=== PATIENT | female | born 1940 | race African-American/Black ===

== ENCOUNTER 2023-11-10 12:55 | Emergency (ER) | payer BC, MEDICARE, OTHER ==
[~2023-11-10] VITALS: Ht 170.2 cm; Wt 74.0 kg
[~2023-11-10 12:55] MED LIST: CLOP75TA33 PO; LISI20TA31 PO
[2023-11-10 13:00] VITALS: TEMP 98.4; O2SAT 98
[2023-11-10] MEDS ORDERED: SODIUM CHLORIDE 0.9% 1,000 ML IV ONE (13:15)
[2023-11-10] MEDS ORDERED: FAMOTIDINE 20MG/2ML VIAL IV STA (13:15)
[2023-11-10] MEDS ORDERED: ONDANSETRON HCL 4MG/2ML INJ IV STA (13:15)
[2023-11-10] MEDS ORDERED: LOPERAMIDE HCL 2MG CAPSULE PO ONE (14:45)
[2023-11-10] MEDS ORDERED: MORPHINE SULFATE 2 MG/ML CPJ (NOT FOR IM USE) IV ONE (14:45)
[2023-11-10 14:58] LABS: INR 1.1; PROTHROMBIN TIME 11.3 sec (9.6-11.0)
[2023-11-10 14:59] LABS: BASOPHILS % 0.9 % (0.0-2.0); EOSINOPHILS % 0.1 % (0.0-5.0); HEMATOCRIT. 41.9 % (36.0-48.0); HEMOGLOBIN. 13.4 g/dL (12.0-16.0); LYMPHOCYTES % 18.2 % (20.0-50.0); MEAN CORPUSCULAR HEMOGLOBIN 27.9 pg (28.0-32.0); MEAN CORPUSCULAR HGB CONC 31.9 g/dL (31.0-37.0); MEAN CORPUSCULAR VOLUME 87.5 fL (81.0-99.0); MEAN PLATELET VOLUME 8.2 fl (7.4-10.4); MONOCYTES % 10.8 % (2.0-8.0); PLATELET 228 x1000/uL (130-400); RED BLOOD CELL COUNT 4.79 mill/uL (4.2-5.4); RED CELL DISTRIBUTION WIDTH 13.7 % (11.6-14.6); WHITE BLOOD COUNT 5.3 x1000/uL (4.5-11.0)
[2023-11-10 15:13] LABS: ALANINE AMINOTRANSFERASE 40 IU/L (10-49); ALBUMIN 4.5 g/dL (3.2-4.8); ASPARTATE AMINOTRANSFERASE 50 IU/L (<34); BILIRUBIN TOTAL 0.3 mg/dL (0.1-1.0); CALCIUM 9.7 mg/dL (8.7-10.4); CARBON DIOXIDE 23 mEq/L (21-32); CHLORIDE 101 mEq/L (98-107); CREATININE 1.3 mg/dL (0.6-1.0); GLUCOSE 169 mg/dL (70-105); POTASSIUM 3.4 mEq/L (3.5-5.1); PROTEIN TOTAL 7.7 g/dL (6.0-8.3); SODIUM 136 mEq/L (136-145); TROPONIN I HIGH SENSITIVITY 5 ng/L (3.0-34); UREA NITROGEN BLOOD 16 mg/dL (9-23)
[2023-11-10] MEDS ORDERED: FAMOTIDINE 20MG/2ML VIAL IV NR (15:15)
[2023-11-10] MEDS ORDERED: ONDANSETRON HCL 4MG/2ML INJ IV NR (15:15)
[2023-11-10] MEDS ORDERED: CYCLOBENZAPRINE 10MG TABLET PO ONE (15:45)
[2023-11-10] MEDS ORDERED: POTASSIUM CHLORIDE 20MEQ TABLET SR PO NR (16:35)
[2023-11-10 16:57] VITALS: BP 143/72; PULSE 72; RESP 16
[2023-11-10] MEDS ORDERED: LEVOFLOXACIN 500MG TABLET PO NR (17:00)
[2023-11-10] MEDS ORDERED: CIPR-263 MT (17:01)
== END 2023-11-10 17:35 | disposition home or self-care (01) ==
LOC: ER 12:55
DX: K52.9 Noninfective gastroenteritis and colitis, unspecified (principal); E86.0 Dehydration; E78.00 Pure hypercholesterolemia, unspecified; I10 Essential (primary) hypertension; Z90.13 Acquired absence of bilateral breasts and nipples; Z98.890 Other specified postprocedural states
CPT/HCPCS: 99285; 74176; 96374; 71045; 96361; 96375; 80053; 83605; 83690; 85025; 85610; 86850; 86900; 86901; 84484; 36415; 93005; J3490; J2405; J7030; J2270